=== PATIENT | female | born 1965 | race Caucasian/White ===

== ENCOUNTER 2017-10-02 11:34 | Emergency (ER) | payer MEDICARE ==
--- NOTE | 2017-10-02 11:36 | ER Report ---
History and Physical Time Seen By MD: 11:36 HPI/ROS CHIEF COMPLAINT: Chest pain/shortness of breath HISTORY OF PRESENT ILLNESS: Patient is a 52-year-old female with past medical history significant for hypertension and hypercholesterolemia swelling and anxiety who presents to emergency department with complaint of chest pain and shortness of breath that began just after midnight last night patient is a [place] but came to [place] to visit her grandson. She's had constant discomfort since midnight last night described the pain as a pressure sensation over the sternum with radiation down the left arm described as tingling. He further states that she feels as if her heart is "pounding in her chest." We have no prior electronic medical record contacts for this patient. Patient states he had similar symptoms in the past in fact had a report of a normal cardiac catheter 6 months ago. Patient states that she tried multiple things like taking a bath and resting to see if pain would subside but it has remained persistent. She denies fevers or chills she denies cough but does report shortness of breath. REVIEW OF SYSTEMS: Constitutional: No fever, no chills. Eyes: No discharge. ENT: No sore throat. Cardiovascular: Chest pain and palpitations Respiratory: Shortness of breath Gastrointestinal: No abdominal pain, no vomiting. Genitourinary: No hematuria. Musculoskeletal: No back pain. Skin: No rashes. Neurological: No headache. Allergies: Coded Allergies: Antihistamines - Alkylamine (Verified Allergy, Unknown, 10/02/17) Antihistamines - Ethanolamine (Verified Allergy, Unknown, 10/02/17) Antihistamines - Ethylenediamine (Verified Allergy, Unknown, 10/02/17) Antihistamines - Piperazine (Verified Allergy, Unknown, 10/02/17) Antihistamines - Piperidine (Verified Allergy, Unknown, 10/02/17) acetaminophen (Verified Allergy, Unknown, 10/02/17) diazepam (Verified Allergy, Unknown, 10/02/17) oxycodone (Verified Allergy, Unknown, 10/02/17) propoxyphene (Verified Allergy, Unknown, 10/02/17) Home Meds Reported Medications Lorazepam (ATIVAN) 0.5 Mg Tablet, 5 MG PO PRN 10/02/17 Metoprolol Succinate (METOPROLOL SUCCINATE) 25 Mg Tab.er.24h, 1 TAB PO QDAY, TAB 10/02/17 Buspirone Hcl (BUSPIRONE HCL) 5 Mg Tab, 5 MG TD BID, #10 TAB 10/02/17 Atorvastatin Calcium (LIPITOR) 10 Mg Tablet, 0.5 TAB PO QDAY, TAB 10/02/17 Aspirin (ASPIR 81) 81 Mg Tablet.dr, 81 MG PO QDAY, TAB 10/02/17 Past Medical/Surgical History Hypertension, hypercholesterol Constitutional Vital Sign - Last 24 Hours 10/02/17 11:41 Temp 98.4 Pulse 83 Resp 19 Pulse Ox 94 O2 Delivery Room Air Physical Exam General/Constitutional: Patient is awake, alert, nontoxic and in no acute respiratory distress. Head: Normocephalic and atraumatic. Eyes: Conjunctival clear, Pupils are equal and reactive to light. Extraocular muscles are intact and symmetrical. Sclera are clear and anicteric. Ears:External canals are clear. Tympanic membranes are clear with normal landmarks and light reflex. Nares: No rhinorrhea or bleeding. Turbinates are pink and moist. Oropharyngeal: Mucous membranes are moist. There is no pharyngeal erythema or exudate. Neck: Supple, no adenopathy. Cardiovascular: Heart is regular rate and rhythm without audible murmurs, rubs or gallops. Pulmonary: Lungs are clear to auscultation bilaterally. There are no wheezes, rales, or rhonchi. Chest rise is symmetrical Abdomen: Soft, nontender, no guarding or peritoneal signs. Extremities: No gross deformities, No peripheral cyanosis. Able to move all 4 extremities. Neuro: Alert and oriented X3, Skin: No rashes, skin is warm dry and well perfused. Medical Decision Making Data Points Result Diagram: 10/02/17 1148 10/02/17 1148 Laboratory Hematology Test 10/02/17 11:48 Red Blood Count 4.72 M/uL (4.17-5.56) Mean Corpuscular Volume 83.3 fL (80.0-96.0) Mean Corpuscular Hemoglobin 28.9 pg (26.0-33.0) Mean Corpuscular Hemoglobin Concent 34.7 g/dL (32.0-36.0) Red Cell Distribution Width 12.7 % (11.5-14.5) Mean Platelet Volume 8.2 fL (7.2-11.1) Neutrophils (%) (Auto) 51.4 % (39.4-72.5) Lymphocytes (%) (Auto) 36.1 % (17.6-49.6) Monocytes (%) (Auto) 8.3 % (4.1-12.4) Eosinophils (%) (Auto) 3.2 % (0.4-6.7) Basophils (%) (Auto) 1.0 % (0.3-1.4) Nucleated RBC Relative Count (auto) 0.0 /100WBC Neutrophils # (Auto) 3.7 K/uL (2.0-7.4) Lymphocytes # (Auto) 2.6 K/uL (1.3-3.6) Monocytes # (Auto) 0.6 K/uL (0.3-1.0) Eosinophils # (Auto) 0.2 K/uL (0.0-0.5) Basophils # (Auto) 0.1 K/uL (0.0-0.1) Nucleated RBC Absolute Count (auto) 0.00 K/uL Prothrombin Time 12.8 seconds (12.0-14.4) Prothromb Time International Ratio 0.97 Activated Partial Thromboplast Time 30 seconds (23-35) D-Dimer Quantitative (PE/DVT) 2.02 ug/ml (0-0.50) Sodium Level 139 mmol/L (137-145) Potassium Level 4.0 mmol/L (3.5-5.0) Chloride Level 104 mmol/L (98-107) Carbon Dioxide Level 24 mmol/L (22-31) Blood Urea Nitrogen 8 mg/dl (7-18) Creatinine 0.50 mg/dl (0.52-1.04) Glomerular Filtration Rate Calc > 60.0 Random Glucose 98 mg/dl (75-110) Calcium Level 9.3 mg/dl (8.4-10.2) Total Bilirubin 0.3 mg/dl (0.2-1.3) Aspartate Amino Transf (AST/SGOT) 38 U/L (0-35) Alanine Aminotransferase (ALT/SGPT) 41 U/L (0-56) Alkaline Phosphatase 123 U/L (0-126) Troponin I < 0.012 ng/ml B-Type Natriuretic Peptide 9 pg/ml (0-100) Total Protein 8.0 gm/dl (6.3-8.2) Albumin 4.0 g/dl (3.5-5.0) Chemistry Test 10/02/17 11:48 White Blood Count 7.3 k/uL (4.5-11.0) Red Blood Count 4.72 M/uL (4.17-5.56) Hemoglobin 13.7 g/dL (12.0-16.0) Hematocrit 39.3 % (34.0-47.0) Mean Corpuscular Volume 83.3 fL (80.0-96.0) Mean Corpuscular Hemoglobin 28.9 pg (26.0-33.0) Mean Corpuscular Hemoglobin Concent 34.7 g/dL (32.0-36.0) Red Cell Distribution Width 12.7 % (11.5-14.5) Platelet Count 315 K/uL (150-450) Mean Platelet Volume 8.2 fL (7.2-11.1) Neutrophils (%) (Auto) 51.4 % (39.4-72.5) Lymphocytes (%) (Auto) 36.1 % (17.6-49.6) Monocytes (%) (Auto) 8.3 % (4.1-12.4) Eosinophils (%) (Auto) 3.2 % (0.4-6.7) Basophils (%) (Auto) 1.0 % (0.3-1.4) Nucleated RBC Relative Count (auto) 0.0 /100WBC Neutrophils # (Auto) 3.7 K/uL (2.0-7.4) Lymphocytes # (Auto) 2.6 K/uL (1.3-3.6) Monocytes # (Auto) 0.6 K/uL (0.3-1.0) Eosinophils # (Auto) 0.2 K/uL (0.0-0.5) Basophils # (Auto) 0.1 K/uL (0.0-0.1) Nucleated RBC Absolute Count (auto) 0.00 K/uL Prothrombin Time 12.8 seconds (12.0-14.4) Prothromb Time International Ratio 0.97 Activated Partial Thromboplast Time 30 seconds (23-35) D-Dimer Quantitative (PE/DVT) 2.02 ug/ml (0-0.50) Glomerular Filtration Rate Calc > 60.0 Calcium Level 9.3 mg/dl (8.4-10.2) Total Bilirubin 0.3 mg/dl (0.2-1.3) Aspartate Amino Transf (AST/SGOT) 38 U/L (0-35) Alanine Aminotransferase (ALT/SGPT) 41 U/L (0-56) Alkaline Phosphatase 123 U/L (0-126) Troponin I < 0.012 ng/ml B-Type Natriuretic Peptide 9 pg/ml (0-100) Total Protein 8.0 gm/dl (6.3-8.2) Albumin 4.0 g/dl (3.5-5.0) Coagulation Test 10/02/17 11:48 Prothrombin Time 12.8 seconds Prothromb Time International Ratio 0.97 Activated Partial Thromboplast Time 30 seconds D-Dimer Quantitative (PE/DVT) 2.02 ug/ml EKG/Imaging EKG Interpretation 10/02/2017 11:45:08 am EKG shows normal sinus rhythm with no significant ST segment or T-wave abnormalities. There is no prior EKG to compare to Monitor Interpretation: Normal Sinus Rhythm Imaging FACILITY: [facility] [place] PATIENT NAME: Maranda Nair : 1965 MR: [id number] V: [id number] EXAM DATE: ORDERING PHYSICIAN: DANETTE NICOLE TECHNOLOGIST: Location: [facility] Patient: Maranda Nair : 1965 Visit/Account:[id number] Date of Sevice: 10/02/2017 CTA CHEST WW/O CNTR (PULM ANG) HISTORY: sob ADDITIONAL HISTORY: None. TECHNIQUE: CTA chest with intravenous contrast. Axial imaging acquired following administration of IV contrast timed for maximum opacification of the pulmonary arterial vasculature. Slab 3-D MIP reconstructed images were also created for further evaluation and interpretation. Reconstruction of the source data set includes multiplanar 2-D in the sagittal and coronal planes and 3-D reconstructed coronal slab MIP series. 3-D images were created by the technologist. One of the following dose optimization techniques was utilized in the performance of this exam: Automated exposure control; adjustment of the mA and/or kV according to the patient's size; or use of an iterative reconstruction technique. Specific details can be referenced in the facility's radiology CT exam operational policy. CONTRAST: 75 mL Isovue-370 COMPARISON: None. FINDINGS: Lungs/pleura: There is a subtle mosaic pattern to the pulmonary parenchyma which represents multifocal small areas of hyperaeration. This represents air trapping usually related to endobronchial obstruction. This can be seen with a pneumonitis, most commonly viral as well as hypersensitivity pneumonitis. There are no areas of focal consolidation. No pleural effusions are seen. Heart/vessels: Negative. There are no filling defects seen in the pulmonary arteries worrisome for a pulmonary embolus. Mediastinum/lymph nodes: Negative. Visualized upper abdomen: Negative. Bones/soft tissues: There are Hidalgo rods affixed to the thoracolumbar spine. Additional findings: None IMPRESSION: Negative for pulmonary embolus. End bronchial air trapping. This is most commonly seen with hypersensitivity of viral pneumonitis and likely represents etiology of patient's shortness of breath. Report Dictated By: Pepito Chew MD at 10/02/2017 12:58 PM Report E-Signed By: Pepito Chew MD at 10/02/2017 1:06 PM WSN:[id number] ED Course/Re-evaluation Clinical Indication for ER IV: IV Access ED Course 10/02/2017 12:00:13 pm plan at this time will be cardiac workup including a d- dimer. My suspicion for true cardiac nature of her pain is low given her persistent symptoms and normal EKG. Feel that a single troponin and negative d- dimer we'll rule out both for cardiac and pulmonary embolism. Decision to Disposition Date: Oct 02, 2017 Decision to Disposition Time: 13:15 Depart Departure Latest Vital Signs Vital Signs Date Time Temp Pulse Resp B/P (MAP) Pulse Ox O2 Delivery O2 Flow Rate FiO2 10/02/17 11:41 98.4 83 19 94 Room Air Impression: Primary Impression: Viral pneumonitis Condition: Improved Disposition: HOME OR SELF-CARE Patient Instructions: Pneumonitis (ED) Additional Instructions: Use the albuterol inhaler 1-2 puffs every 4-6 hours as needed for cough or shortness of breath. DANETTE NICOLE MD Oct 02, 2017 11:36
[2017-10-02] MEDS ORDERED: ASPIRIN 81 MG CHEW PO ONE (11:45)
[2017-10-02] MEDS ORDERED: LORazepam 2 MG/ML VIAL IVP ONE (11:55)
[2017-10-02 12:03] LABS: PLATELET COUNT, AUTOMATED 315 K/uL (150-450)
[2017-10-02] MEDS ORDERED: BUS5 TD (12:10)
[2017-10-02] MEDS ORDERED: ASPI-1471 PO (12:10)
[2017-10-02] MEDS ORDERED: ATOR10TA24 PO (12:10)
[2017-10-02] MEDS ORDERED: METO25TA23 PO (12:10)
[2017-10-02] MEDS ORDERED: LORA-1455 PO (12:11)
[2017-10-02 12:12] LABS: INR 0.97
[2017-10-02] MEDS ORDERED: NS 0.9% 150 ML BAG 150 ML ONE (12:21)
[2017-10-02] MEDS ORDERED: IOPAMIDOL 76% 75 ML INFUS BTL 75 ML ONE (12:21)
--- NOTE | 2017-10-02 12:27 | RADIOLOGY IMAGING REPORT ---
FACILITY: [facility] [place] PATIENT NAME: Maranda Nair : 1965 MR: [id number] V: [id number] EXAM DATE: ORDERING PHYSICIAN: DANETTE NICOLE TECHNOLOGIST: Location: [facility] [place] Patient: Maranda Nair : 1965 Visit/Account:[id number] Date of Sevice: 10/02/2017 Examination: CHEST SINGLE AP Comparison: 12/24/2011 History: Chest pain. Findings: Peribronchial thickening is more prominent than in 2011. No consolidation. No pneumothorax, edema, or effusion. Cardiac and hilar contour is prominent but unchanged. Visualized thoracolumbar s royer hardware is intact. No acute osseous normality. IMPRESSION: Increased peribronchial thickening which could be due to an acute versus chronic bronchitis or reacti ve airway disease. No consolidation. Report Dictated By: Johann Wahl MD at 10/02/2017 12:21 PM Report E-Signed By: Johann Wahl MD at 10/02/2017 12:22 PM WSN:[id number]
--- NOTE | 2017-10-02 12:40 | EKG ---
FACILITY: [facility] PATIENT NAME: UZMA VENCES : [id number] MR: [id number] V: [id number] EXAM DATE: ORDERING PHYSICIAN: DANETTE NICOLE TECHNOLOGIST: LYNSEY Rodriges Reason : CHEST PAIN Blood Pressure : / mmHG Vent. Rate : 081 BPM Atrial Rate : 081 BPM P-R Int : 164 ms QRS Dur : 070 ms QT Int : 376 ms P-R-T Axes : 050 073 074 degrees QTc Int : 436 ms Normal sinus rhythm Normal ECG No previous ECGs available Confirmed by TYLER ELLIS ([id number]) on 10/02/2017 11:23:39 PM Referred By: BONNIE Confirmed By:TYLER ELLIS
--- NOTE | 2017-10-02 13:11 | RADIOLOGY IMAGING REPORT ---
[facility] PATIENT NAME: Maranda Nair : 1965 MR: [id number] V: [id number] EXAM DATE: ORDERING PHYSICIAN: DANETTE NICOLE TECHNOLOGIST: Location: [facility] [place] Patient: Maranda Nair : 1965 Visit/Account:[id number] Date of Sevice: 10/02/2017 CTA CHEST WW/O CNTR (PULM ANG) HISTORY: sob ADDITIONAL HISTORY: None. TECHNIQUE: CTA chest with intravenous contrast. Axial imaging acquired following administration of IV contrast timed for maximum opacification of the pulmonary arterial vasculature. Slab 3-D MIP roc nstructed images were also created for further evaluation and interpretation. Reconstruction of the [facility] data set includes multiplanar 2-D in the sagittal and coronal planes and 3-D reconstructed danrde nal slab MIP series. 3-D images were created by the technologist. One of the following dose optimiz ation techniques was utilized in the performance of this exam: Automated exposure control; adjustment of the mA and/or kV according to the patient's size; or use of an iterative reconstruction techniqu e. Specific details can be referenced in the facility's radiology CT exam operational policy. CONTRAST: 75 mL Isovue-370 COMPARISON: None. FINDINGS: Lungs/pleura: There is a subtle mosaic pattern to the pulmonary parenchyma which represents multifoc al small areas of hyperaeration. This represents air trapping usually related to endobronchial obstru ction. This can be seen with a pneumonitis, most commonly viral as well as hypersensitivity pneumonit is. There are no areas of focal consolidation. No pleural effusions are seen. Heart/vessels: Negative. There are no filling defects seen in the pulmonary arteries worrisome for a pulmonary embolus. Mediastinum/lymph nodes: Negative. Visualized upper abdomen: Negative. Bones/soft tissues: There are Hidalgo rods affixed to the thoracolumbar spine. Additional findings: None IMPRESSION: Negative for pulmonary embolus. End bronchial air trapping. This is most commonly seen with hypersensitivity of viral pneumonitis and likely represents etiology of patient's shortness of breath. Report Dictated By: Pepito Chew MD at 10/02/2017 12:58 PM Report E-Signed By: Pepito Chew MD at 10/02/2017 1:06 PM WSN:[id number]
[2017-10-02 13:15] VITALS: BP 130/88
[2017-10-02] MEDS ORDERED: ALBUTEROL SULFATE 90 MCG/ACT 8.5 GM HNH INH ONE (13:20)
== END 2017-10-02 13:32 | disposition home or self-care (01) ==
LOC: ER 11:37
DX: J12.9 Viral pneumonia, unspecified (principal)
CPT/HCPCS: 71045; 71275; 83880; 84484; 85025; 85379; 85610; 85730; 93005; 96374; 99284; A9270; J2060; Q9967; 82040; 82247; 82310; 82374; 82435; 82565; 82947; 84075; 84132; 84155; 84295; 84450; 84460; 84520